=== PATIENT | female | born 1995 | race Caucasian/White ===

== ENCOUNTER → 2022-04-12 | Outpatient (CLI) | payer BC ==
--- NOTE | 2022-04-12 17:05 | Diagnostic Imaging Report ---
INDICATION: patient, survey. TECHNIQUE: Multiple real-time grayscale images were obtained over the gravid uterus. COMPARISON: None. FINDINGS: There is a single live intrauterine fetus measuring 20 weeks 2 days by composite measurements with heart rate of 150 bpm. Sonographic EDC is 08/28/2022. The fetus is in cephalic presentation. Placenta is posterior with no evidence of previa. Cervical length is 4 cm. Distance from the internal os to the tip of the placenta was 4.1 cm. Maternal adnexa showed no free fluid. survey showed normal-appearing kidneys and bladder. Normal-appearing stomach is seen. Intracranial ventricles appear normal. Views of the spine were normal. Four-chamber heart view and three-vessel cord and cord insertion appear unremarkable. Biometrical measurements are as follows: Biparietal 4.94 cm, age 21 weeks 0 days. Head circumference 17.68 cm, age 20 weeks 2 days. Abdominal circumference 14.57 cm, age 20 weeks 0 days. Femur length 3.11 cm, age 19 weeks 5 days. Sonographic estimate age: 20 weeks 2 days. Sonographic estimated date of delivery: 08/28/2022. Estimated Weight: 317 gm (+/- 46 gm). LMP percentile: 62%. heart rate: 150 beats per minute. number: 1 of 1. IMPRESSION: Single live intrauterine fetus measuring 20 weeks 2 days in size, as above. There was no detectable abnormality. Dictated by: Dictated on workstation # [id number]
== END ==
LOC: RAD 12:00
PROVIDERS: ATTEND Obstetrics & Gynecology
DX: Z34.02 Encounter for supervision of normal first pregnancy, second trimester (principal); Z3A.20 20 weeks gestation of pregnancy
CPT/HCPCS: 76805

== ENCOUNTER 2022-08-31 13:19 | Inpatient (IN) | payer BC ==
[2022-08-31] VITALS (37 sets, daily range): BP systolic 93–140; BP diastolic 52–91
[~2022-08-31] VITALS: Ht 160 cm; Wt 68.5 kg
[2022-08-31] MEDS ORDERED: AMPICILLIN FOR IV USE 2,000 MG in NS (IVPB) 50 ML IV SCH (13:41)
[2022-08-31] MEDS ORDERED: D5 LR IV SOLUTION 1,000 ML IV ONE (13:43)
[2022-08-31 14:06] LABS: BASOPHILS % (AUTO) 0 % (0-10); HEMOGLOBIN 12.4 g/dL (11.5-16.0)
[2022-08-31 14:08] LABS: EOSINOPHILS % (AUTO) 0 % (0-10); HEMATOCRIT 38 % (35-52); LYMPHOCYTES % (AUTO) 21 % (12-44); MEAN CORPUSCULAR HEMOGLOBIN 25 pg (25-34); MEAN CORPUSCULAR HGB CONC 33 g/dL (32-36); MEAN CORPUSCULAR VOLUME 77 fL (80-99); MONOCYTES # (AUTO) 0.5 10^3/uL (0.0-1.0); MONOCYTES % (AUTO) 6 % (0-12); NEUTROPHILS # (AUTO) 6.8 10^3/uL (1.8-7.8); NEUTROPHILS % (AUTO) 73 % (42-75); PLATELET COUNT 152 10^3/uL (130-400); WHITE BLOOD COUNT 9.4 10^3/uL (4.3-11.0)
[2022-08-31 14:09] LABS: SMEAR SCAN COMMENT YES
[2022-08-31] MEDS: D5 LR IV SOLUTION 1,000 ML IV SCH ×2 (14:12→20:20)
[2022-08-31 14:46] LABS: ALBUMIN 3.6 GM/DL (3.2-4.5); BILIRUBIN,TOTAL 0.4 MG/DL (0.1-1.0); CALCIUM 9.3 MG/DL (8.5-10.1); CREATININE SERUM 0.74 MG/DL (0.60-1.30); POTASSIUM 3.6 MMOL/L (3.6-5.0); URIC ACID 8.1 MG/DL (2.6-7.2)
--- NOTE | 2022-08-31 15:50 | History & Physical-OB ---
OB - Chief Complaint & HPI Date/Time Date of Admission: Date of Admission: Aug 31, 2022 at 1:19 pm Date seen by a Provider: Aug 31, 2022 Time Seen by a Provider: 11:45 Chief Complaint/History OB-Reason for Admission/Chief: Induction of Labor Hx : 1 Hx Para: 0 Expected Date of Delivery: Sep 02, 2022 Gestational Age in Weeks: 39 Gestational Age in Days: 5 Indication for induction: medical complication Admission Nurse Assessment Rev: Yes History of Labs O pos Antibody neg RI RPR NR HBsAg NR HIV NR GC neg GBS pos Allergies and Home Medications Allergies Coded Allergies: codeine (Verified Adverse Reaction, Unknown, Vomiting, 08/31/22) Patient Home Medication List Home Medication List Reviewed: Yes OB - History Hx of Present Care: Yes Ultrasounds: Normal mid trimester US Obstetrical Complications: Gestational Hypertension Medical Complications: None Patient Past Medical History n/a Immunizations Influenza Vaccine Up-to-Date: Yes; Up-to-Date COVID19 Vaccine Naturalization Examiner: moderna Hepatitis A: Yes Hepatitis B: Yes OB - Admission Exam Physical Exam HEENT: NCAT Heart: Rhythm Normal Lungs: Clear Abdomen: Gravid Extremities: Normal Reflexes: Normal Cervical Dilatation: 3cm Effacement: 75% Station: -1 Membranes: Intact Heart Rate: 130's Accelerations: Accelerations Present Decelerations: No Decelerations Short Term Variability: Present Acting Section Chief Variability: Average (6-25) Contractions on Admission: 6-10 Minutes Apart Intensity: Mild Walker Scoring Tool (Modified) Dilation (cm): 3-4cm (2) Effacement (%): 51-79% (2) Descent/Station: -1,0 (2) Cervix Consistency: Soft (2) Cervix Position: Anterior (2) Subtract 1 point for: Nulliparity (-1) Walker Score: 9 Labs Laboratory Tests Test 08/31/22 13:36 08/31/22 13:55 08/31/22 14:23 Range/Units Urine Protein 30 H 6-12 MG/DL Urine Creatinine 196 H 30-125 MG/DL Urine Protein/Creatinine Ratio 0.15 White Blood Count 9.4 4.3-11.0 10^3/uL Red Blood Count 4.94 3.80-5.11 10^6/uL Hemoglobin 12.4 11.5-16.0 g/dL Hematocrit 38 35-52 % Mean Corpuscular Volume 77 L 80-99 fL Mean Corpuscular Hemoglobin 25 25-34 pg Mean Corpuscular Hemoglobin Concent 33 32-36 g/dL Red Cell Distribution Width 15.7 H 10.0-14.5 % Platelet Count 152 130-400 10^3/uL Mean Platelet Volume 9.0-12.2 fL Immature Granulocyte % (Auto) 1 % Neutrophils (%) (Auto) 73 42-75 % Lymphocytes (%) (Auto) 21 12-44 % Monocytes (%) (Auto) 6 0-12 % Eosinophils (%) (Auto) 0 0-10 % Basophils (%) (Auto) 0 0-10 % Neutrophils # (Auto) 6.8 1.8-7.8 10^3/uL Lymphocytes # (Auto) 2.0 1.0-4.0 10^3/uL Monocytes # (Auto) 0.5 0.0-1.0 10^3/uL Eosinophils # (Auto) 0.0 0.0-0.3 10^3/uL Basophils # (Auto) 0.0 0.0-0.1 10^3/uL Immature Granulocyte # (Auto) 0.1 0.0-0.1 10^3/uL Percent Immature Platelet Fraction 22.5 H 0.0-7.6 % Sodium Level 134 L 135-145 MMOL/L Potassium Level 3.6 3.6-5.0 MMOL/L Chloride Level 103 98-107 MMOL/L Carbon Dioxide Level 18 L 21-32 MMOL/L Anion Gap 13 5-14 MMOL/L Blood Urea Nitrogen 12 7-18 MG/DL Creatinine 0.74 0.60-1.30 MG/DL Estimat Glomerular Filtration Rate 114 BUN/Creatinine Ratio 16 Glucose Level 69 L 70-105 MG/DL Uric Acid 8.1 H 2.6-7.2 MG/DL Calcium Level 9.3 8.5-10.1 MG/DL Corrected Calcium 9.6 8.5-10.1 MG/DL Total Bilirubin 0.4 0.1-1.0 MG/DL Aspartate Amino Transf (AST/SGOT) 20 5-34 U/L Alanine Aminotransferase (ALT/SGPT) 14 0-55 U/L Alkaline Phosphatase 269 H 40-136 U/L Total Protein 7.0 6.4-8.2 GM/DL Albumin 3.6 3.2-4.5 GM/DL Smear Scan YES OB - Assessment/Plan/Diagnosis Assessment Assessment: induction of labor Admission Dx 27 yo @ 39 weeks GHTN GBS pos Admission Status: Inpatient Order (span 2 midnights) Reason for Inpatient Admission: IOL at 39 weeks Plan Plan: Induction Induction Method: MARBELLA BEE DO Aug 31, 2022 3:50 pm
[2022-08-31] MEDS ORDERED: OXYTOCIN PRE-MIX DRIP 500 ML IV SCH (17:15)
[2022-08-31] MEDS ORDERED: OXYTOCIN PRE-MIX DRIP 500 ML IV ONE (17:25)
[2022-08-31] MEDS: AMPICILLIN FOR IV USE 1,000 MG in NS (IVPB) 50 ML IV SCH ×2 (17:58→21:24)
[2022-08-31] MEDS ORDERED: fentaNYL 2 mcg/ml BUPIVA 0.125 100 ML ONE (18:44)
[2022-08-31] MEDS ORDERED: NALOXONE 0.4 MG/ML 1 ML (NARCAN) VIAL IV PRN ×2 (20:15)
[2022-08-31] MEDS ORDERED: METOCLOPRAMIDE INJ 10 MG/2 ML (REGLAN) IV PRN (20:15)
[2022-08-31] MEDS ORDERED: ONDANSETRON 4 MG/2 ML (SDV) Z0FRAN IV PRN (20:15)
[2022-08-31] MEDS ORDERED: LACTATED RINGERS 1,000 ML IV SCH (20:15)
[2022-08-31] MEDS ORDERED: diphenhydrAMINE 50 MG/ML INJ (BENADRYL) IV PRN (20:15)
[2022-08-31] MEDS: fentaNYL 2 mcg/ml BUPIVA 0.125 100 ML EPI SCH (20:21)
[2022-08-31] MEDS ORDERED: ONDANSETRON 4 MG/2 ML (SDV) Z0FRAN ONE (20:41)
[2022-08-31] MEDS ORDERED: ONDANSETRON 4 MG/2 ML (SDV) Z0FRAN IV ONE ×2 (21:25→21:45)
[2022-09-01] VITALS (43 sets, daily range): BP systolic 98–149; BP diastolic 56–91
[2022-09-01] MEDS: AMPICILLIN FOR IV USE 1,000 MG in NS (IVPB) 50 ML IV SCH ×2 (01:59→05:39)
[2022-09-01] MEDS: fentaNYL 2 mcg/ml BUPIVA 0.125 100 ML EPI SCH (02:21)
[2022-09-01] MEDS: D5 LR IV SOLUTION 1,000 ML IV SCH (02:42)
[2022-09-01] MEDS ORDERED: LIDOCAINE 1% INJ 20 ML VIAL ONE (07:26)
[2022-09-01] MEDS ORDERED: BENZOCAINE/MENTHOL (DERMOPLAST) 56 ML CAN TP PRN (10:00)
[2022-09-01] MEDS ORDERED: OXYTOCIN PRE-MIX DRIP 500 ML IV SCH (10:00)
[2022-09-01] MEDS ORDERED: WITCH HAZEL(TUCKS) 40 EA JAR TOP PRN (10:00)
[2022-09-01] MEDS ORDERED: HYDROcodone/APAP 5 MG/325 MG (LORTAB) TAB PO PRN (10:00)
[2022-09-01] MEDS ORDERED: NALOXONE 0.4 MG/ML 1 ML (NARCAN) VIAL IV PRN (10:00)
--- NOTE | 2022-09-01 10:22 | OB Labor & Delivery Record ---
L&D History Date of Service Date of Service: Sep 01, 2022 History Expected Date of Delivery: Sep 02, 2022 Gestational Age in Weeks: 39 Hx : 1 Hx Para: 0 Complications Events: Routine care Operative Indications (Cesarea: N/A-Vaginal Delivery Intrapartal Events: None L&D Stage1 Stage One Onset of Labor - Date: Sep 01, 2022 Monitors and Tracing Monitor Mode: External Heart Rate: 125 Monitor Accelerations: Uniform Monitor Decelerations: Variable Station: -1 Detention Variability: Average (6-10) Vital Signs VS - Last 72 Hours, by Label 08/31/22 08/31/22 08/31/22 08/31/22 13:45 15:15 16:55 17:35 Temp 35.9 36.3 Pulse 87 78 80 Resp 18 18 18 B/P (MAP) 117/81 (93) 119/81 (94) Pulse Ox 100 O2 Delivery Room Air 08/31/22 08/31/22 08/31/22 08/31/22 17:50 18:05 18:20 18:35 Temp 36.3 Pulse 83 78 76 88 Resp 18 18 18 18 B/P (MAP) 127/61 (83) 121/75 (90) 122/82 (95) 124/91 (102) 08/31/22 08/31/22 08/31/22 08/31/22 18:50 19:05 19:20 19:35 Temp 36.2 Pulse 77 79 84 79 Resp 18 18 18 B/P (MAP) 116/77 (90) 140/66 (90) 130/87 (101) 140/66 (90) O2 Delivery Room Air Room Air Room Air 08/31/22 08/31/22 08/31/22 08/31/22 19:50 19:55 20:00 20:05 Pulse 87 80 98 95 Resp 18 18 18 18 B/P (MAP) 140/82 (101) 123/78 (93) 127/72 (90) 125/74 (91) Pulse Ox 100 100 O2 Delivery Room Air Room Air Room Air Room Air 08/31/22 08/31/22 08/31/22 08/31/22 20:10 20:15 20:20 20:25 Pulse 95 105 95 99 Resp 18 18 18 18 B/P (MAP) 125/74 (91) 111/55 (73) 125/74 (91) 120/69 (86) Pulse Ox 100 100 100 100 O2 Delivery Room Air Room Air Room Air Room Air 08/31/22 08/31/22 08/31/22 08/31/22 20:35 20:40 20:45 20:50 Temp 36.4 Pulse 102 90 84 81 Resp 18 18 18 18 B/P (MAP) 113/72 (86) 106/61 (76) 93/52 (66) Pulse Ox 100 100 99 100 O2 Delivery Room Air Room Air Room Air Room Air 08/31/22 08/31/22 08/31/22 08/31/22 20:55 21:00 21:05 21:10 Pulse 87 78 67 66 Resp 18 18 18 18 B/P (MAP) 109/67 (81) 112/72 (85) 111/75 (87) 114/74 (87) Pulse Ox 100 100 100 100 O2 Delivery Room Air Room Air Room Air Room Air 08/31/22 08/31/22 08/31/22 08/31/22 21:15 21:35 21:50 22:05 Pulse 85 74 69 78 Resp 16 16 16 16 B/P (MAP) 114/71 (85) 100/59 (73) 100/60 (73) 100/58 (72) Pulse Ox 100 100 100 100 O2 Delivery Room Air Room Air Room Air Room Air 08/31/22 08/31/22 08/31/22 08/31/22 22:20 22:35 22:50 23:05 Temp 36.6 Pulse 76 81 78 84 Resp 16 16 16 16 B/P (MAP) 99/57 (71) 106/66 (79) 108/69 (82) 115/70 (85) Pulse Ox 99 99 99 99 O2 Delivery Room Air Room Air Room Air Room Air 08/31/22 08/31/22 08/31/22 09/01/22 23:20 23:35 23:50 00:05 Pulse 84 91 96 97 Resp 16 16 16 16 B/P (MAP) 111/63 (79) 117/74 (88) 113/75 (88) 113/71 (85) Pulse Ox 100 100 100 100 O2 Delivery Room Air Room Air Room Air Room Air 09/01/22 09/01/22 09/01/22 09/01/22 00:20 00:35 00:50 01:05 Pulse 87 89 74 77 Resp 16 16 16 16 B/P (MAP) 120/73 (89) 101/56 (71) 105/59 (74) Pulse Ox 100 99 100 100 O2 Delivery Room Air Room Air Room Air Room Air 09/01/22 09/01/22 09/01/22 09/01/22 01:20 01:35 01:50 02:05 Pulse 98 93 83 87 Resp 16 16 16 16 B/P (MAP) 121/72 (88) 132/71 (91) 118/64 (82) 105/65 (78) Pulse Ox 100 100 100 100 O2 Delivery Room Air Room Air Room Air Room Air 09/01/22 09/01/22 09/01/22 09/01/22 02:20 02:35 02:50 03:05 Temp 36.6 Pulse 86 92 82 85 Resp 16 16 16 16 B/P (MAP) 114/74 (87) 122/78 (93) 117/75 (89) 124/78 (93) Pulse Ox 99 100 100 100 O2 Delivery Room Air Room Air Room Air Room Air 09/01/22 09/01/22 09/01/22 09/01/22 03:20 03:35 03:50 04:05 Pulse 80 71 80 82 Resp 16 16 16 16 B/P (MAP) 119/76 (90) 105/66 (79) 106/69 (81) 113/68 (83) Pulse Ox 98 98 99 99 O2 Delivery Room Air Room Air Room Air Room Air 09/01/22 09/01/22 09/01/22 09/01/22 04:20 04:35 04:50 05:05 Pulse 81 83 88 88 Resp 16 18 18 18 B/P (MAP) 105/72 (83) 120/77 (91) 124/81 (95) 120/72 (88) Pulse Ox 98 98 99 100 O2 Delivery Room Air Room Air Room Air Room Air 09/01/22 09/01/22 09/01/22 09/01/22 05:20 05:35 05:50 06:05 Pulse 100 100 103 93 Resp 18 18 16 18 B/P (MAP) 117/76 (90) 116/80 (92) 116/83 (94) 119/82 (94) Pulse Ox 100 100 100 99 O2 Delivery Room Air Room Air Room Air Room Air 09/01/22 09/01/22 09/01/22 09/01/22 06:20 06:35 06:50 07:05 Pulse 105 93 91 89 Resp 18 18 18 18 B/P (MAP) 131/91 (104) 120/67 (84) 115/70 (85) 120/58 (78) Pulse Ox 99 99 100 99 O2 Delivery Room Air Room Air Room Air Room Air 09/01/22 09/01/22 09/01/22 09/01/22 07:20 07:35 07:50 08:10 Pulse 97 93 98 102 Resp 18 18 18 18 B/P (MAP) 125/80 (95) 149/75 (99) 128/69 (88) 98/78 (85) Pulse Ox 100 O2 Delivery Room Air Room Air Room Air Room Air Rupture of Membranes Spontaneous Ruture of Membrane: No Amniotic Membrane Rupture Time: 1625 Amniotic Membrane Fluid Desc.: Meconium Stained Vaginal Bleeding Description: Normal Show Induction/Anesthesia Epidural Cath Placement - Time: 1954 Progress/Notes Patient admitted from the office after elevated BP at 39 weeks for IOL. AROM performed at admission at 3 cm. She was augmented with pitocin to max dose of 14, she received an epidural and progressed to complete and + 1 station L&D Stage2 Stage Two Stage II Date: Sep 01, 2022 Monitors and Tracing Monitor Mode: External Heart Rate: 125 Monitor Accelerations: Uniform Monitor Decelerations: Variable Detention Variability: Average (6-10) Short Term Variability: Present Position: Right Occiput Anterior Presentation: Vertex Cord Descript/Complications Cord Vessel Description: 3 Vessels Complications nuchal cord reduced x 2 Delivery Type Infant Delivery Method: Spontaneous Vaginal Anterior Shoulder: Right Episiotomy/Perineal Laceration Laceraction(s)/Extensions: Yes Episiotomy Description: Right Mediolateral Degree (describe repair) RML repaired using 3-0 and 2-0 vicryl suture in usual fashion. Condition of Infant Delivery 1 minute Comment: 8 5 minute Comment: 9 Notes Live female 8lbs Condition of Condition of : Living Exam: No Observed Abnormalities Resuscitation Resuscitation: N/A - Spontaneous Resp L&D Stage3 Stage Three Stage III Date: Sep 01, 2022 Pictocin Pitocin Administration mu/min: 14 Pitocin ml/hr: 14 Pitocin Administration Comment: 30 mu wide open after delivery of placenta Placenta Delivery Placenta Delivery: Spontaneous Delivery Summary Summary Estimated blood loss (mL): 350 Attending at delivery: Marbella Barry DO Condition of Delivery Examined: Cervix Examined, Uterus Explored Post Hemorrhage: No Condition of Mother stable Condition of Infant (s) stable MARBELLA BARRY DO Sep 01, 2022 10:22
--- NOTE | 2022-09-01 10:23 | Discharge Inst-Women's Service ---
Discharge Inst-Women's Serv Depart Medication/Instructions New, Converted or Re-Newed RX: Transmitted to Pharmacy Final Diagnosis PPD 1 NVD Problems Reviewed?: Yes Consults/Follow Up Additional Follow Up: Yes Orders/Referrals Dr. Barry in 6 weeks Activity Activity: Activity as Tolerated Driving Instructions: No Driving for 1 Week NO SMOKING: NO SMOKING Nothing Inside Vagina: No Douching, No [place], No Tampons Diet Discharge Diet: No Restrictions Symptoms to Report to : Bleeding Excessive, Pain Increased, Fever Over 101 Degrees F, Vaginal Bleeding Increase, Questions/Concerns For Any Problems or Questions: Contact Your Physician MARBELLA BARRY DO Sep 01, 2022 10:23
[2022-09-01] MEDS ORDERED: BENZ78AE5 TP (10:24)
[2022-09-01] MEDS ORDERED: ACHD5005 PO (10:24)
[2022-09-01] MEDS ORDERED: DOCU100C37 PO (10:24)
[2022-09-01] MEDS ORDERED: IBUP-844 PO (10:24)
[2022-09-01] MEDS: IBUPROFEN 600 MG (MOTRIN) TAB PO SCH ×3 (10:46→22:21)
[2022-09-01] MEDS ORDERED: CATHETER FLUSH 10 ML SYR IV SCH (14:00)
[2022-09-01] MEDS ORDERED: LIDOCAINE 1% INJ 20 ML VIAL INJ ONE (14:30)
[2022-09-01] MEDS: DOCUSATE SODIUM 100 MG (COLACE) CAP PO SCH (20:19)
[2022-09-02 00:31] VITALS: BP 106/55
[2022-09-02] MEDS: IBUPROFEN 600 MG (MOTRIN) TAB PO SCH ×2 (04:32→11:22)
[2022-09-02 04:40] VITALS: BP 94/53
[2022-09-02 05:15] LABS: EOSINOPHILS % (AUTO) 0 % (0-10); HEMOGLOBIN 8.9 g/dL (11.5-16.0)
[2022-09-02 05:17] LABS: BASOPHILS % (AUTO) 0 % (0-10); HEMATOCRIT 28 % (35-52); LYMPHOCYTES # (AUTO) 2.2 10^3/uL (1.0-4.0); LYMPHOCYTES % (AUTO) 16 % (12-44); MEAN CORPUSCULAR HEMOGLOBIN 25 pg (25-34); MEAN CORPUSCULAR HGB CONC 32 g/dL (32-36); MEAN CORPUSCULAR VOLUME 79 fL (80-99); MONOCYTES # (AUTO) 0.9 10^3/uL (0.0-1.0); MONOCYTES % (AUTO) 6 % (0-12); NEUTROPHILS # (AUTO) 10.3 10^3/uL (1.8-7.8); NEUTROPHILS % (AUTO) 77 % (42-75); PLATELET COUNT 116 10^3/uL (130-400); WHITE BLOOD COUNT 13.5 10^3/uL (4.3-11.0)
[2022-09-02] MEDS: DOCUSATE SODIUM 100 MG (COLACE) CAP PO SCH (09:17)
[2022-09-02 09:22] VITALS: BP 106/59
--- NOTE | 2022-09-02 09:38 | Postpartum Progress Note ---
Note Note Day # 1 Subjective: Patient is without complaints. Ambulating, voiding. Tolerating a regular diet without nausea or vomiting. Normal lochia. Pain is well controlled with oral pain medications. Objective: Physical Exam: General - Alert and oriented, no apparent distress Abdomen - Soft, appropriately tender to palpation, non-distended, fundus firm at umbilicus Extremities - no edema, negative Nel's bilaterally Assessment: PPD 1 NVD Acute blood loss anemia Plan: Routine care. Encourage breast feeding. Encourage ambulation. Ferrous sulfate supplementation. Plan for discharge today Vitals - Labs Vital Signs - I&O Vital Signs Date Time Temp Pulse Resp B/P (MAP) Pulse Ox O2 Delivery O2 Flow Rate FiO2 09/02/22 04:40 36.2 70 16 94/53 (67) 98 Room Air 09/02/22 00:31 36.3 83 16 106/55 (72) 98 Room Air 09/01/22 20:34 36.2 77 16 118/79 (92) 99 Room Air 09/01/22 16:35 36.5 70 18 122/70 (87) Room Air 09/01/22 12:25 36.8 68 111/64 (80) Room Air 09/01/22 11:20 71 18 112/73 (86) Room Air 09/01/22 11:05 76 18 108/66 (80) Room Air 09/01/22 10:50 71 18 117/70 (86) Room Air 09/01/22 10:35 78 18 134/79 (97) Room Air 09/01/22 10:20 67 18 126/67 (86) Room Air 09/01/22 10:05 80 18 124/66 (85) Room Air 09/01/22 09:50 36.6 82 18 129/70 (89) Room Air I & O 09/02/22 07:00 Intake Total 2000 ml Balance 2000 ml Labs Laboratory Tests 09/02/22 04:36: White Blood Count 13.5H, Red Blood Count 3.50L, Hemoglobin 8.9#L, Hematocrit 28L , Mean Corpuscular Volume 79L, Mean Corpuscular Hemoglobin 25, Mean Corpuscular Hemoglobin Concent 32, Red Cell Distribution Width 16.0H, Platelet Count 116L, Mean Platelet Volume , Immature Granulocyte % (Auto) 1, Neutrophils (%) (Auto) 77H, Lymphocytes (%) (Auto) 16, Monocytes (%) (Auto) 6, Eosinophils (%) (Auto) 0, Basophils (%) (Auto) 0, Neutrophils # (Auto) 10.3H, Lymphocytes # (Auto) 2.2, Monocytes # (Auto) 0.9, Eosinophils # (Auto) 0.0, Basophils # (Auto) 0.0, Immature Granulocyte # (Auto) 0.1, Percent Immature Platelet Fraction 17.0H MARBELLA BARRY DO Sep 02, 2022 09:38
--- NOTE | 2022-09-02 16:11 | Anesthesia-Regional Post-Op ---
Regional Patient Condition Mental Status: Alert, Oriented x3 Circulation: Same as Pre-Op Headache: Absent Sensation: Full Recovery Motor Block: Absent Post Op Complications Complications None Follow Up Care/Instructions Patient Instructions None needed. Anesthesia/Patient Condition Patient is doing well, no complaints, stable vital signs, no apparent adverse anesthesia problems. No complications reported per nursing. NOAH DOUGLASS CRNA Sep 02, 2022 16:10
== END 2022-09-02 13:13 | disposition home or self-care (01) | DRG 806 ==
LOC: LDRP 13:19
PROVIDERS: ADMIT Obstetrics & Gynecology; ATTEND Obstetrics & Gynecology
PROC: 10E0XZZ Delivery of Products of Conception, External Approach (ICD-10-PCS; principal; 2022-08-31)
PROC: 0W8NXZZ Division of Female Perineum, External Approach (ICD-10-PCS; 2022-08-31)
PROC: 10907ZC Drainage of Amniotic Fluid, Therapeutic from Products of Conception, Via Natural or Artificial Opening (ICD-10-PCS; 2022-08-31)
DX: O13.4 Gestational [pregnancy-induced] hypertension without significant proteinuria, complicating childbirth (principal); D62 Acute posthemorrhagic anemia; Z37.0 Single live birth; Z3A.39 39 weeks gestation of pregnancy; O99.824 Streptococcus B carrier state complicating childbirth; O69.81X0 Labor and delivery complicated by cord around neck, without compression, not applicable or unspecified; O90.81 Anemia of the puerperium
CPT/HCPCS: 36415; 80053; 82570; 84156; 84550; 85025; 86780; 86850; 86900; 86901